=== PATIENT | male | born 1950 | race Caucasian/White ===

== ENCOUNTER 2018-04-22 06:02 | Day surgery (SDC) | payer MEDICARE, OTHER ==
[~2018-04-22] VITALS: Ht 172.7 cm; Wt 74.5 kg
[~2018-04-22 06:02] MED LIST: GLIP10 PO; INHALER; LISI-660 PO; METF-960 PO; OMEP20 PO; SIMV-259 PO; SODIUM CHLORIDE 0.9% 1,000 ML IV ONE
[2018-04-22] MEDS ORDERED: SODIUM CHLORIDE 0.9% 1,000 ML IV ONE (07:00)
[2018-04-22 07:14] LABS: GLUCOMETER DEV NAME(LOC) SDS.; GLUCOSE,POINT OF CARE 128 MG/DL (70-110)
[2018-04-22] MEDS ORDERED: MIDAZOLAM HCL 2 MG/2 ML VIAL ONE (07:56)
[2018-04-22] MEDS ORDERED: FentaNYL CITRATE-PF 100 MCG/2 ML VIAL ONE (07:56)
[2018-04-22] MEDS ORDERED: MethylPREDNISolone SOD SUCC 125 MG/2 ML VIAL IVP ONE (09:00)
[2018-04-22] MEDS ORDERED: MethylPREDNISolone SOD SUCC 125 MG/2 ML VIAL ONE (09:15)
[2018-04-22] MEDS ORDERED: BUDE10.22 IH (09:37)
[2018-04-22] MEDS ORDERED: INSLAN SQ (09:39)
[2018-04-22] MEDS ORDERED: BENZOCAINE 20% 50 MCG/SPRAY 57 GM TP ONE (12:00)
[2018-04-22] MEDS ORDERED: SODIUM CHLORIDE IV ONE (12:00)
[2018-04-22] MEDS ORDERED: OXYGEN THERAPY IH SCH (20:00)
== END 2018-04-22 10:35 | disposition home or self-care (01) ==
LOC: SURGERY 06:02
PROVIDERS: ATTEND Internal Medicine Critical Care Medicine
DX: J38.4 Edema of larynx (principal); B37.0 Candidal stomatitis; J98.09 Other diseases of bronchus, not elsewhere classified; J98.8 Other specified respiratory disorders; J39.8 Other specified diseases of upper respiratory tract; J45.998 Other asthma; I10 Essential (primary) hypertension; E11.9 Type 2 diabetes mellitus without complications; Z87.09 Personal history of other diseases of the respiratory system; Z87.01 Personal history of pneumonia (recurrent); Z79.4 Long term (current) use of insulin; Z79.84 Long term (current) use of oral hypoglycemic drugs; Z87.891 Personal history of nicotine dependence; Z72.89 Other problems related to lifestyle; Z98.890 Other specified postprocedural states; Z79.899 Other long term (current) drug therapy
CPT/HCPCS: 31623; 31624; 71045; 82962; 87015; 87070; 87205; 87206; 87220; 88108; 88312; J2250; J2930; J3010; J7030

== ENCOUNTER 2019-09-11 05:57 | Emergency (ER) | payer MEDICARE, OTHER ==
[~2019-09-11] VITALS: Ht 172.7 cm; Wt 74.5 kg
[~2019-09-11 05:57] MED LIST changes: +BUDE10.22 IH; -GLIP10 PO; -INHALER; +INSLAN SQ; -SODIUM CHLORIDE 0.9% 1,000 ML IV ONE
[2019-09-11 07:10] LABS: GLUCOSE,POINT OF CARE 113 MG/DL (70-110)
[2019-09-11 07:51] VITALS: BP 133/94
== END 2019-09-11 07:55 | disposition home or self-care (01) ==
LOC: EMS 05:57
DX: Z03.818 Encounter for observation for suspected exposure to other biological agents ruled out (principal); I10 Essential (primary) hypertension; E11.9 Type 2 diabetes mellitus without complications; J45.909 Unspecified asthma, uncomplicated; Z79.4 Long term (current) use of insulin; Z79.899 Other long term (current) drug therapy

== ENCOUNTER 2023-05-17 07:06 | Day surgery (SDC) | payer MEDICARE, OTHER ==
[~2023-05-17] VITALS: Ht 170.2 cm; Wt 75.0 kg
[~2023-05-17 07:06] MED LIST changes: +ATOR20TA PO; +CARV3 PO; +DULA0.75 SQ; -LISI-660 PO; +LISI-892 PO; +METF-1211 PO; -METF-960 PO; +MONT-35 PO; +VALS160T2 PO
[2023-05-17] MEDS ORDERED: FentaNYL CITRATE PF 100 MCG/2 ML VIAL ONE (08:11)
[2023-05-17] MEDS ORDERED: MIDAZOLAM HCL 2 MG/2 ML VIAL ONE (08:11)
[2023-05-17] MEDS: SODIUM CHLORIDE 0.9% 1,000 ML IV ONE (08:13)
[2023-05-17 08:17] LABS: GLUCOMETER DEV NAME(LOC) SDS.; GLUCOSE,POINT OF CARE 99 MG/DL (70-110)
[2023-05-17] MEDS ORDERED: MethylPREDNISolone SOD SUCC 125 MG/2 ML VIAL ONE (09:19)
[2023-05-17 09:57] VITALS: PULSE 73; RESP 17; O2SAT 100
[2023-05-17] MEDS: MethylPREDNISolone SOD SUCC 125 MG/2 ML VIAL IVP ONE (10:23)
[2023-05-17] MEDS ORDERED: BENZOCAINE 20% 50 MCG/SPRAY 57 GM TP ONE (12:00)
[2023-05-17] MEDS ORDERED: LIDOCAINE 4% 50 ML SOLUTION TP ONE (12:00)
[2023-05-17] MEDS ORDERED: LIDOCAINE 2% 11 ML JELLY TP ONE (12:00)
== END 2023-05-17 11:55 | disposition home or self-care (01) ==
LOC: SURGERY 07:06
PROVIDERS: ATTEND Internal Medicine Critical Care Medicine
DX: J38.4 Edema of larynx (principal); B37.0 Candidal stomatitis; I10 Essential (primary) hypertension; I25.10 Atherosclerotic heart disease of native coronary artery without angina pectoris; E78.00 Pure hypercholesterolemia, unspecified; Z79.899 Other long term (current) drug therapy; Z95.5 Presence of coronary angioplasty implant and graft; G47.30 Sleep apnea, unspecified; J45.909 Unspecified asthma, uncomplicated; Z98.890 Other specified postprocedural states
CPT/HCPCS: 31623; 82962; 87206; 87101; 87220; 87070; 88108; 88305; 31624; 71045; 87015; J3010; J2250; J2930; Q9967; Z7610